=== PATIENT | female | born 1945 | race Caucasian/White ===

== ENCOUNTER → 2017-03-18 | Outpatient (CLI) | payer MEDICARE, OTHER | LOC: RAD 09:50 | DX: I51.7 Cardiomegaly (principal) | CPT/HCPCS: Q9967 ==

== ENCOUNTER → 2017-07-01 | Outpatient (CLI) | payer MEDICARE, OTHER | LOC: RAD 08:04 → MAMMO 08:30 | DX: M85.852 Other specified disorders of bone density and structure, left thigh (principal) ==

== ENCOUNTER → 2017-07-01 | Outpatient (CLI) | payer MEDICARE, OTHER | LOC: MAMMO 08:03 | DX: Z12.31 Encounter for screening mammogram for malignant neoplasm of breast (principal); Z13.820 Encounter for screening for osteoporosis; M85.89 Other specified disorders of bone density and structure, multiple sites ==

== ENCOUNTER 2018-03-25 13:30 | Outpatient (RCR) | payer MEDICARE | END 2018-05-30 | disposition home or self-care (01) | LOC: PT | DX: M54.6 Pain in thoracic spine (principal); M53.3 Sacrococcygeal disorders, not elsewhere classified | CPT/HCPCS: G8978-GP; G8979-GP ==

== ENCOUNTER 2021-07-20 02:32 | Emergency (ER) | payer MEDICARE ==
[~2021-07-20] VITALS: Ht 160 cm; Wt 89.5 kg
[2021-07-20] MEDS ORDERED: FLUTICASON0.05 MG/Ac NS (03:19)
[2021-07-20] MEDS ORDERED: NOVOLOG FLEX100 U/ML SQ (03:19)
[2021-07-20] MEDS ORDERED: DULOXETINE60 MG PO (03:19)
[2021-07-20] MEDS ORDERED: DESYREL 100MG100 MG PO (03:19)
[2021-07-20] MEDS ORDERED: LOSARTAN POTASS25 MG PO (03:20)
[2021-07-20] MEDS ORDERED: NIFEDIPINE PO (03:20)
[2021-07-20] MEDS ORDERED: PERCOCET 325 MG1 TA2 PO (03:20)
[2021-07-20] MEDS ORDERED: METFORMIN ER500 MG PO (03:21)
[2021-07-20] MEDS ORDERED: NEXIUM20 MG PO (03:24)
[2021-07-20 03:44] LABS: BASO # 0.04 K/mm3 (0.02-0.10); EOS # 0.04 K/mm3 (0.04-0.40); EOS % 0.4 % (1.0-5.0); HEMATOCRIT 46.7 % (37.0-47.0); HEMOGLOBIN 15.1 g/dL (12.5-16.0); MEAN CELL VOLUME 89 fl (78-100); MEAN CORPUSCULAR HEMOGLOBIN 29 pg (27-31); MEAN CORPUSCULAR HGB CONC 32 g/dL (33-37); MEAN PLATELET VOLUME 9.1 fl (7.4-10.4); NEU # 6.93 K/mm3 (1.40-6.50); PLATELET COUNT 352 K/mm3 (130-400); RED BLOOD COUNT 5.24 M/mm3 (4.10-5.30); WHITE BLOOD COUNT 8.9 K/mm3 (4.8-10.8)
[2021-07-20 03:48] LABS: POTASSIUM 4.2 mmol/L (3.5-5.1)
[2021-07-20 03:49] LABS: CALCIUM 9.7 mg/dL (8.3-10.5)
[2021-07-20 03:50] LABS: TOTAL PROTEIN 7.2 g/dL (6.2-8.1)
[2021-07-20 03:52] LABS: TOTAL BILIRUBIN 0.5 mg/dL (0.2-1.2)
[2021-07-20 08:28] LABS: URINE APPEARANCE HAZY; URINE COLOR T; URINE PROTEIN(semi-quant) TRACE (NEGATIVE)
[2021-07-20 08:29] LABS: URINE BILIRUBIN NEGATIVE (NEGATIVE); URINE BLOOD TRACE (NEGATIVE); URINE KETONE 2+ (NEGATIVE); URINE LEUKOCYTE ESTERASE NEGATIVE (NEGATIVE); URINE MUCUS PRESENT (NOT PRESENT); URINE NITRATE NEGATIVE (NEGATIVE); URINE UROBILINOGEN NORMAL (NORMAL); URINE WBC 0-1 /hpf (0-3)
[2021-07-20 09:31] VITALS: BP 147/85
== END 2021-07-20 09:36 | disposition home or self-care (01) ==
LOC: ED 02:32
PROVIDERS: Family Medicine
DX: K21.9 Gastro-esophageal reflux disease without esophagitis (principal); R05.9 Cough, unspecified; E11.9 Type 2 diabetes mellitus without complications; Z20.822 Contact with and (suspected) exposure to COVID-19; Z91.14 Patient's other noncompliance with medication regimen; Z79.4 Long term (current) use of insulin
CPT/HCPCS: J1815

== ENCOUNTER → 2021-12-26 | Outpatient (CLI) | payer MEDICARE ==
[~2021-12-26] MED LIST: DESYREL 100MG100 MG PO; DULOXETINE60 MG PO; FLUTICASON0.05 MG/Ac NS; LOSARTAN POTASS25 MG PO; METFORMIN ER500 MG PO; NEXIUM20 MG PO; NIFEDIPINE PO; NOVOLOG FLEX100 U/ML SQ; PERCOCET 325 MG1 TA2 PO
== END ==
LOC: RAD 08:18
DX: R94.31 Abnormal electrocardiogram [ECG] [EKG] (principal)

== ENCOUNTER → 2022-04-17 | Outpatient (CLI) | payer MEDICARE | LOC: RAD 13:07 | DX: I51.7 Cardiomegaly (principal); I27.20 Pulmonary hypertension, unspecified; I25.10 Atherosclerotic heart disease of native coronary artery without angina pectoris | CPT/HCPCS: Q9967 ==